=== PATIENT | female | born 1990 | race Caucasian/White ===

== ENCOUNTER 2021-04-24 19:40 | Emergency (ER) | payer MEDICAID, OTHER ==
[~2021-04-24] VITALS: Ht 162.6 cm; Wt 70.3 kg
[2021-04-24 20:09] VITALS: BP 111/69
--- NOTE | 2021-04-24 20:09 | NUR ---
PATIENT AWAITING IN TENT
--- NOTE | 2021-04-24 21:00 | NUR ---
PATIENT LEFT WITHOUT BEING SEEN BY DR. PRESTON. NO FURTHER CARE PROVIDED FOR PATIENT.
--- NOTE | 2021-04-24 21:00 | NUR ---
CALLED FOR PATIENT NO ANSWER AT THIS TIME
--- NOTE | 2021-04-24 21:33 | NUR ---
CALLED FOR PATIENT NO ANSWER AT THIS TIME
== END 2021-04-24 21:33 | disposition left against medical advice (07) ==
LOC: MED 19:40
DX: R11.2 Nausea with vomiting, unspecified (principal); R19.7 Diarrhea, unspecified; R50.9 Fever, unspecified; Z53.21 Procedure and treatment not carried out due to patient leaving prior to being seen by health care provider